=== PATIENT | female | born 1990 | race Native Hawaiian/Other Pacific Islander ===

== ENCOUNTER → 2020-05-30 13:27 | Observation (INO) | END | disposition home or self-care (01) | LOC: 1NENULAB | PROVIDERS: ADMIT Student in an Organized Health Care Education/Training Program; ATTEND Student in an Organized Health Care Education/Training Program ==

== ENCOUNTER 2020-06-02 12:16 | Inpatient (IN) ==
[2020-06-02] MEDS ORDERED: Famotidine 20 MG/2 ML VIAL IVP PRN (13:02)
[2020-06-02] MEDS ORDERED: Naloxone 0.4 MG/ML INJ IVP PRN (13:02)
[2020-06-02] MEDS ORDERED: Metoclopramide 10 MG/2 ML VIAL IVP PRN (13:02)
[2020-06-02] MEDS ORDERED: miSOPROStoL 25 MCG TABLET VG PRN (13:02)
[2020-06-02] MEDS ORDERED: miSOPROStoL 100 MCG TABLET PO STA (14:31)
[2020-06-02] MEDS: Ringers Solution, Lactated 1,000 ML IVC SCH ×2 (14:45→22:30)
[2020-06-02 14:50] LABS: Basophils % 0.2 %; Eosinophils % 0.4 %; Hematocrit 38.7 % (35.3-44.9); Hemoglobin 12.5 g/dL (11.5-15.4); Immature Granulocytes % 0.7 % (0-4); Lymphocytes # 1.2 K/mcL (0.6-4.6); Lymphocytes % 10.9 %; Mean Corpuscular HGB Conc 32.3 g/dL (31.6-35.5); Mean Corpuscular Hemoglobin 30.3 pg (28.0-33.3); Mean Corpuscular Volume 93.7 fL (83.0-100.0); Mean Platelet Volume 10.8 fL (9.4-12.4); Monocytes # 0.5 K/mcL (0.0-1.3); Monocytes % 4.8 %; Neutrophils # 9.4 K/mcL (1.6-8.9); Platelet Count 201 K/mcL (140-400); Red Blood Count 4.13 M/mcL (3.82-4.97); Red Cell Distribution Width 13.4 % (11.5-14.5); White Blood Count 11.3 K/mcL (4.3-11.1)
[2020-06-02 14:54] LABS: Amphetamine Screen,Urine Negative ng/mL (Cutoff=1000); Barbiturate Screen,Urine Negative ng/mL (Cutoff=200); Benzodiazepines Screen,Urine Negative ng/mL (Cutoff=200); Cannabinoid Screen,Urine Negative ng/mL (Cutoff = 50); Cocaine Screen,Urine Negative ng/mL (Cutoff= 300); Opiate Screen,Urine Negative ng/mL (Cutoff=300); Phencyclidine Screen,Urine Negative ng/mL (Cutoff=25)
[2020-06-02 14:57] LABS: Eosinophils # 0.1 K/mcL (0.0-0.6)
[2020-06-02] MEDS ORDERED: Oxytocin 20 units/ LR 1000 mL 20 UNIT/1,000 ML BAG IVC SCH (17:00)
[2020-06-02] MEDS ORDERED: *HR* FentaNYL (PF) 100 MCG/2 ML VIAL ONE (23:16)
[2020-06-02] MEDS ORDERED: Ropivacaine/PF 0.2% 20 ML VIAL ONE (23:16)
[2020-06-02] MEDS ORDERED: Epidural Premix (fent/bupiv) 110 ML EP ONE (23:20)
[2020-06-02] MEDS ORDERED: EPHEDrine 50 MG/ML VIAL IVP PRN (23:45)
[2020-06-03] MEDS ORDERED: 0.9 % Sodium Chloride 1,000 ML ONE (04:10)
[2020-06-03] MEDS ORDERED: Terbutaline 1 MG/ML VIAL SQ ONE (04:18)
[2020-06-03] MEDS: Epidural Premix (fent/bupiv) 110 ML EP SCH ×2 (07:30→14:40)
[2020-06-03] MEDS ORDERED: Ropivacaine/PF 0.2% 20 ML VIAL ONE (11:11)
[2020-06-03] MEDS ORDERED: ceFAZolin 3,000 MG in Water for inj. (sterile) 30 ML IVP ONE (21:41)
[2020-06-03] MEDS ORDERED: Azithromycin 500 MG in 0.9 % Sodium Chloride 250 ML IVPB ONE (21:42)
[2020-06-03] MEDS ORDERED: Chloroprocaine/PF 20 ML VIAL INFILT ONE (22:25)
[2020-06-03] MEDS ORDERED: *HR* Oxytocin 10 UNIT/ML VIAL IM ONE ×2 (22:34→23:40)
[2020-06-03] MEDS ORDERED: Ondansetron 4 MG/2 ML VIAL IVP ONE (22:38)
[2020-06-03] MEDS ORDERED: *HR* Promethazine 25 MG/ML VIAL IVP PRN (22:38)
[2020-06-03] MEDS ORDERED: Ondansetron 4 MG/2 ML VIAL ONE (22:51)
[2020-06-03] MEDS ORDERED: Dexamethasone 4 MG/ML VIAL ONE (22:51)
[2020-06-03] MEDS ORDERED: *HR* Morphine Sulfate/PF 10 MG/10 ML AMPUL ONE (23:10)
[2020-06-04] MEDS ORDERED: Chloroprocaine/PF 20 ML VIAL INFILT ONE
[2020-06-04] MEDS ORDERED: Ropivacaine/PF 0.2% 20 ML VIAL ONE (00:07)
[2020-06-04] MEDS ORDERED: Ketorolac 30 MG/ML VIAL ONE (00:34)
[2020-06-04] MEDS ORDERED: Acetaminophen IV 1,000 MG/100 ML INFUS..BTL ONE (00:38)
[2020-06-04] MEDS: *HR* HYDROmorphone PF 0.5 MG/0.5 ML SYRINGE IVP PRN ×2 (01:00→01:14)
[2020-06-04] MEDS ORDERED: Oxytocin 20 units/ LR 1000 mL 20 UNIT/1,000 ML BAG IVC SCH (03:34)
[2020-06-04] MEDS ORDERED: Metoclopramide 10 MG/2 ML VIAL IVP PRN (03:34)
[2020-06-04] MEDS ORDERED: Rho Immune Globulin 1,500 UNIT SYRINGE IM ONE (03:34)
[2020-06-04] MEDS ORDERED: *HR* OxyCODONE/APAP 5/325 TABLET PO PRN (03:34)
[2020-06-04] MEDS ORDERED: Sennosides 8.6 MG TABLET PO PRN (03:34)
[2020-06-04] MEDS ORDERED: Ringers Solution, Lactated 1,000 ML IVC SCH (03:34)
[2020-06-04] MEDS ORDERED: Ondansetron 4 MG/2 ML VIAL IVP PRN (03:34)
[2020-06-04 05:42] LABS: Basophils % 0.1 %; Eosinophils % 0.1 %; Hematocrit 30.4 % (35.3-44.9); Hemoglobin 10.4 g/dL (11.5-15.4); Immature Granulocytes % 0.7 % (0-4); Lymphocytes # 0.5 K/mcL (0.6-4.6); Mean Corpuscular HGB Conc 34.2 g/dL (31.6-35.5); Mean Corpuscular Volume 90.5 fL (83.0-100.0); Mean Platelet Volume 10.4 fL (9.4-12.4); Monocytes # 0.9 K/mcL (0.0-1.3); Monocytes % 4.7 %; Neutrophils # 16.5 K/mcL (1.6-8.9); Platelet Count 140 K/mcL (140-400); Red Blood Count 3.36 M/mcL (3.82-4.97); Red Cell Distribution Width 13.5 % (11.5-14.5); Segmented Neutrophils % 91.4 %; White Blood Count 18.1 K/mcL (4.3-11.1)
[2020-06-04] MEDS: Ketorolac 30 MG/ML VIAL IVP SCH ×2 (06:26→12:44)
[2020-06-04] MEDS: Acetaminophen 325 MG TABLET PO SCH ×3 (06:28→18:22)
[2020-06-04] MEDS: Prenatal Vit/FA 1 EACH TABLET PO SCH (09:11)
[2020-06-04] MEDS: Simethicone 80 MG TAB.CHEW PO SCH ×3 (13:50→18:25)
[2020-06-04] MEDS: Ibuprofen 600 MG TABLET PO SCH (18:22)
[2020-06-05] MEDS: Ibuprofen 600 MG TABLET PO SCH ×4 (02:32→21:05)
[2020-06-05] MEDS: Acetaminophen 325 MG TABLET PO SCH ×4 (02:32→21:05)
[2020-06-05] MEDS: Simethicone 80 MG TAB.CHEW PO SCH ×3 (02:53→21:05)
[2020-06-05] MEDS: Prenatal Vit/FA 1 EACH TABLET PO SCH (07:39)
[2020-06-06] MEDS: Ibuprofen 600 MG TABLET PO SCH (03:09)
[2020-06-06] MEDS: Acetaminophen 325 MG TABLET PO SCH (03:10)
[2020-06-06] MEDS: Prenatal Vit/FA 1 EACH TABLET PO SCH (07:39)
[2020-06-06 07:48] VITALS: BP 121/77
== END 2020-06-06 11:00 | disposition home or self-care (01) | DRG 787 ==
LOC: 1NENULAB 12:16 → 1NENUOBS 06-04 03:33
PROVIDERS: ADMIT Student in an Organized Health Care Education/Training Program; ATTEND Student in an Organized Health Care Education/Training Program